=== PATIENT | female | born 1995 | race Caucasian/White ===

== ENCOUNTER → 2016-10-08 | Outpatient (CLI) | payer OTHER ==
[~2016-10-08] MED LIST: LEVAQUIN 750MG750 M1 PO; LORATADINE10 MG PO; MOTRIN 800800 MG/TAB PO; NAPROSYN500 MG PO; NO HOME MEDICATIONS; NORCO 325 MG-7.1 TAB PO; TYLENOL 500MG500 MG PO; [UNRECOGNIZED DRUG - OTHER]
== END ==
LOC: COL.RAD 13:51
DX: Z53.9 Procedure and treatment not carried out, unspecified reason (principal)

== ENCOUNTER → 2016-10-09 | Outpatient (CLI) | payer OTHER | LOC: COL.RAD 14:24 | DX: J18.8 Other pneumonia, unspecified organism (principal) ==